=== PATIENT | female | born 1995 | race Hispanic/Latino ===

== ENCOUNTER 2020-08-04 00:54 | Emergency (ER) | payer MEDICAID, OTHER ==
[~2020-08-04] VITALS: Ht 149.9 cm; Wt 94.3 kg
[~2020-08-04 00:54] MED LIST: ACET1TAB12 PO
[2020-08-04] MEDS ORDERED: ONDANSETRON ODT 4 MG TAB SL ONE (03:00)
[2020-08-04 03:59] LABS: APPEARANCE,URINE Clear (CLEAR); BILIRUBIN,URINE Negative (NEGATIVE); COLOR,URINE Yellow (YELLOW); GLUCOSE, URINE (UA) Negative (NEGATIVE); KETONES,URINE Negative (NEGATIVE); LEUKOCYTE ESTERASE ,URINE Negative (NEGATIVE); NITRATE,URINE Negative (NEGATIVE); OCCULT BLOOD,URINE Negative (NEGATIVE); PH,URINE 6.5 (5.0-8.0); PROTEIN,URINE Negative (NEGATIVE); UROBILINOGEN,URINE 0.2 mg/dL (0.2-1.0)
[2020-08-04 04:02] LABS: HCG,QUAL RESULT NEGATIVE (NEGATIVE)
[2020-08-04] MEDS ORDERED: ONDANSETRON ODT 4 MG TAB ONE (04:03)
[2020-08-04] MEDS ORDERED: ONDA4TAB10 PO (04:12)
[2020-08-04] MEDS ORDERED: METO10TA41 PO (04:12)
[2020-08-04 04:24] VITALS: BP 124/74
== END 2020-08-04 04:28 | disposition home or self-care (01) ==
LOC: EDH 00:54
DX: R11.0 Nausea (principal); R10.11 Right upper quadrant pain; R42 Dizziness and giddiness; F41.9 Anxiety disorder, unspecified; Z79.899 Other long term (current) drug therapy; Z98.890 Other specified postprocedural states
CPT/HCPCS: 81003; 81025

== ENCOUNTER 2020-08-30 16:57 | Emergency (ER) | payer OTHER ==
[~2020-08-30] VITALS: Ht 149.9 cm; Wt 92.1 kg
[~2020-08-30 16:57] MED LIST changes: +METO10TA41 PO; +ONDA4TAB10 PO
[2020-08-30 16:59] VITALS: BP 133/76
== END 2020-08-30 18:05 | disposition home or self-care (01) ==
LOC: EDH 16:57
DX: F41.9 Anxiety disorder, unspecified (principal); Z79.899 Other long term (current) drug therapy
CPT/HCPCS: 93005